=== PATIENT | male | born 1980 | race Caucasian/White ===

== ENCOUNTER 2020-01-11 11:08 | Emergency (ER) | payer SELFPAY ==
[~2020-01-11] VITALS: Ht 185.4 cm; Wt 68.2 kg
[2020-01-11 11:25] VITALS: BP 121/79; Ht 185.4 cm; Wt 68.2 kg
[2020-01-11] MEDS ORDERED: KEFLEX500 MG PO (12:21)
[2020-01-11] MEDS ORDERED: IBUPROFEN800 MG PO (12:21)
[2020-01-12] MEDS ORDERED: TYLENOL W/CODEI1 TAB PO (10:28)
== END 2020-01-11 12:44 | disposition home or self-care (01) ==
LOC: D.ER 11:08
DX: L03.012 Cellulitis of left finger (principal)

== ENCOUNTER 2020-01-12 09:11 | Emergency (ER) | payer SELFPAY ==
[~2020-01-12] VITALS: Ht 185.4 cm; Wt 68.2 kg
[~2020-01-12 09:11] MED LIST: IBUPROFEN800 MG PO; KEFLEX500 MG PO
[2020-01-12 09:24] VITALS: Ht 185.4 cm; Wt 68.2 kg
[2020-01-12] MEDS ORDERED: TYLENOL W/CODEI1 TAB PO (10:28)
[2020-01-12 11:04] VITALS: BP 134/84
== END 2020-01-12 11:05 | disposition home or self-care (01) ==
LOC: D.ER 09:11
DX: M79.89 Other specified soft tissue disorders (principal)